=== PATIENT | male | born 2000 ===

== ENCOUNTER 2022-05-15 07:39 | Day surgery (SDC) | payer OTHER ==
[~2022-05-15] VITALS: Ht 180.3 cm; Wt 82.1 kg
[~2022-05-15 07:39] MED LIST: AMOX250CH PO
--- NOTE | 2022-05-15 09:22 | NUR ---
05/15/22 0922 [facility] DRAKE ON 15L O2 VIA FACE TENT. TRIAL DOWN TO 10L
== END 2022-05-15 10:18 | disposition home or self-care (01) ==
LOC: ORSCSDS 07:39
PROVIDERS: Otolaryngology
PROC: 0CBPXZZ Excision of Tonsils, External Approach (ICD-10-PCS; principal; 2022-05-15 09:00)
DX: J35.8 Other chronic diseases of tonsils and adenoids (principal); J35.01 Chronic tonsillitis
CPT/HCPCS: 88304; A9270; J1100; J2250; J2405; J2704; J3010